=== PATIENT | female | born 1990 | race American Indian/Alaskan Native ===

== ENCOUNTER 2020-10-23 10:16 | Inpatient (IN) | payer BC, OTHER ==
--- NOTE | 2020-10-22 09:58 | History and Physical Report ---
History of Present Illness Date of examination: 10/16/20 Date of admission: 10/23/2020 Chief complaint: here for c/s History of present illness: Pt here for pre Op for primary c/s due to abdominal cerclage in place. She desires to keep cerclage in place at this time. All risk/benefits/alternatives were d/w pt and questions were addressed and answered. Consent signed and given to pt to bring to hospital on day of surgery. No contractions no bleeding +FM. No hedaches or blurry vision BP initially elevated but was normal when repeated. 2nd BP: 128/74.......................................................................Demetrio Phillips October 17, 2020 9:47 AM EDC Confirmation: 10/30/2020 Gestational Age: 7 2/7 weeks Past History : 5 Mult. Births: 0 Prev : 0 Aborta: 1 Elect. Ab: 0 Ectopics: 0 Risk Factors: Smoked Tobacco Use: Never smoker Smokeless Tobacco Use: Never Passive smoke exposure: no Drug use: no HIV high-risk behavior: no Alcohol use: yes Type: occ Exercise: yes Times per week: 5 Type of Exercise: walking Seatbelt use: 100 % Family History Risk Factors: Family History of MO in females < 65 years old: no Past Medical History: Reviewed history from 08/21/2015 and no changes required: Denies Past Surgical History: Reviewed history from 11/18/2019 and no changes required: Cerclage placement X2 Past Medical History Anesthesia Complications: negative Anemia: negative Autoimmune Disorder: negative Bleeding Disorder: negative Blood Transfusions: negative Breast Disease: negative Diabetes: negative Heart Disease: negative Hypertension: negative Hepatitis/Liver Disease: negative Kidney Disease/UTI: negative Neurologic/Epilepsy/Migraines: negative Phlebitis/Varicosities: negative Psychiatric: negative Pulmonary Disease/Asthma: negative Thyroid Disease: negative Hospitalizations: negative Surgery (Non-guidance counselor): Cerclage placement X2 Abnormal PAP: negative JAMAAL Exposure: negative Infertility: negative Uterine Anomaly: negative Uterine Surgery (not C/S): negative Other Gynecologic Problems: negative Social Hx: Patient is single Smoking History: Patient has never smoked. Infection History Hx of STD: Trich HIV Risk Eval: no Hepatitis B Risk Eval: low risk Personal hx. of genital herpes: no Partner hx. of genital herpes: no Rash, Viral, or Febrile illness since last LMP? no Varicella/Chicken Pox Status: Previous Disease TB Risk: no Genetic History Congenital Heart Defect: Mom: no Dad: no Vlad Disease: Mom: no Dad: no Thalassemia Mom: no Dad: no Neural Tube Defect Mom: no Dad: no Down's Syndrome Mom: no Dad: no Rodney-Sachs Mom: no Dad: no Sickle Cell Disease/Trait Mom: no Dad: no Hemophilia Mom: no Dad: no Muscular Dystrophy Mom: no Dad: no Cystic Fibrosis Mom: no Dad: no Mary Jane Chorea Mom: no Dad: no Mental Retardation Mom: no Dad: no Fragile X Mom: no Dad: no Other Genetic/Chromosomal Disorder Mom: no Dad: no Child w/other defect Mom: no Dad: no Enviromental Exposures Xray Exposure: no Medication, drug, or alcohol use since LMP: no Chemical/Other Exposure: no Exposure to Cat Liter: no Occupational Exposure to Children: none Past History Past Medical History: no pertinent history Past Surgical History: other (abdominal cerclage) Family/Genetic History: other (see hpi) Social history: no significant social history - Obstetrical History Expected Date of Delivery: 10/30/20 Actual Gestation: 39 Week(s) 0 Day(s) : 4 Para: 1 Hx # Term Pregnancies: 1 Number of Pregnancies: 1 Number of Living Children: 1 Medications and Allergies Allergies Allergy/AdvReac Type Severity Reaction Status Date / Time No Known Allergies Allergy Verified 12/27/15 08:47 Home Medications Medication Instructions Recorded Confirmed Last Taken Type Vit-Fe Fumar-FA [ 1 tab PO QDAY 10/09/15 12/31/15 1 Day Ago History Vitamin] ~12/26/15 1 tab Sulfamethoxazole/Trimethoprim 1 each PO BID #14 tablet 10/12/15 12/31/15 Unknown Rx [Bactrim DS TAB] Review of Systems All systems: negative - Physical Exam Cardiovascular: Normal S1, Normal S2 Lungs: Positive: Clear to auscultation, Normal air movement Abdomen: Positive: normal appearance, soft. Negative: distention, tenderness, guarding Genitourinary (Female): Positive: other (deferred) - Obstetrical FHR: auscultation normal Results All other labs normal. Assessment and Plan - Patient Problems (1) 39 weeks gestation of Status: Acute (2) Cervical cerclage suture present in third trimester Status: Acute Plan to address problem: -admit -prepare for c/s -consent signed and placed on the chart
[~2020-10-23 10:16] MED LIST: BICITRA ORAL LIQD 30ML PO SCH; FAMOTIDINE 20 MG/2 ML INJ IV SCH; LACTATED RINGERS 1,000 ML IV SCH; METOCLOPRAMIDE 10 MG/2 ML INJ IV SCH; ceFAZolin/Water 2 GM/20 ML 2 GM/20 ML SYRINGE IV NR
[2020-10-23] MEDS ORDERED: OXYTOCIN DRIP 30 UNITS/500 ML BAG IV SCH (10:30)
[2020-10-23] MEDS ORDERED: LACTATED RINGERS 1,000 ML IV SCH (10:30)
[2020-10-23] MEDS ORDERED: PROMETHAZINE 25 MG TAB PO PRN (11:00)
[2020-10-23] MEDS ORDERED: diphenhydrAMINE 50 MG/ML VIAL IV PRN (11:00)
[2020-10-23] MEDS ORDERED: HYDROmorphone 1 MG/1 ML INJ IV PRN (11:00)
[2020-10-23] MEDS ORDERED: ONDANSETRON 4 MG/2 ML INJ IV PRN (11:00)
[2020-10-23] MEDS ORDERED: NalbUPHINE 10 MG/1 ML INJ IV PRN (11:00)
[2020-10-23] MEDS ORDERED: PROMETHAZINE 25 MG RECT SUPP PR PRN (11:00)
[2020-10-23] MEDS ORDERED: NALOXONE 0.4 MG/1 ML INJ IV PRN ×2 (11:00→14:00)
[2020-10-23] MEDS ORDERED: ceFAZolin/STERILE WATER 2 GM/20 ML SYRINGE IV ONE (11:33)
[2020-10-23 11:34] LABS: Basophils % (Auto) 0.3 % (0.0-1.8); Eosinophils # (Auto) 0.1 K/mm3 (0.0-0.4); Eosinophils % (Auto) 0.6 % (0.0-4.3); Hematocrit 36.5 % (30.3-42.9); Hemoglobin 12.4 gm/dl (10.1-14.3); Lymphocytes # (Auto) 1.7 K/mm3 (1.2-5.4); Lymphocytes % (Auto) 18.2 % (13.4-35.0); Mean Corpuscular HGB Conc 34 % (30-34); Mean Corpuscular Volume 95 fl (79-97); Monocytes # (Auto) 0.6 K/mm3 (0.0-0.8); Monocytes % (Auto) 6.4 % (0.0-7.3); Platelet Count 260 K/mm3 (140-440); Red Blood Count 3.86 M/mm3 (3.65-5.03); Red Cell Distribution Width 13.7 % (13.2-15.2)
[2020-10-23] MEDS ORDERED: BICITRA ORAL LIQD 30ML ONE (11:34)
[2020-10-23] MEDS ORDERED: METOCLOPRAMIDE 10 MG/2 ML INJ ONE (11:35)
[2020-10-23] MEDS ORDERED: FAMOTIDINE 20 MG/2 ML INJ IV ONE (11:35)
[2020-10-23] MEDS ORDERED: ONDANSETRON 4 MG/2 ML INJ ONE ×2 (11:44)
[2020-10-23] MEDS ORDERED: KETOROLAC 30 MG/1 ML INJ ONE (11:44)
[2020-10-23] MEDS ORDERED: BUPIVACAINE/PF (0.5%) 5 MG/1 ML 30 ML VIAL INFILTRATI ONE (11:44)
[2020-10-23] MEDS ORDERED: BUPIVACAINE /DEX-WATER 0.75% (2 ML) AMPULE INFILTRATI ONE (11:44)
--- NOTE | 2020-10-23 11:52 | Anesthesia Day of Surgery ---
Anesthesia Day of Surgery - Day of Surgery Patient Examined: Yes Patient H&P Reviewed: Yes Patient is NPO: Yes Beta Blockers: No Cardiac Clearance: No Pulmonary Clearance: No Mikael's Test: N/A
--- NOTE | 2020-10-23 11:54 | Anesthesia Consultation ---
Anesthesia Consult and Med Hx Date of service: 10/23/20 - Airway Anesthetic Teeth Evaluation: Good ROM Head & Neck: Adequate Mental/Hyoid Distance: Adequate Mallampati Class: Class II Intubation Access Assessment: Probably Good - Pulmonary Exam CTA: Yes - Cardiac Exam Cardiac Exam: RRR - Pre-Operative Health Status ASA Pre-Surgery Classification: ASA2 Proposed Anesthetic Plan: Spinal Nerve Block: tap - Pulmonary Hx Smoking: No Hx Asthma: No COPD: No Hx Pneumonia: No Hx Sleep Apnea: No - Cardiovascular System Hx Hypertension: No Hx Heart Attack/AMI: No Hx Angina: No - Central Nervous System Hx Seizures: No Hx Psychiatric Problems: No - Gastrointestinal Hx Gastroesophageal Reflux Disease: Yes (occ with certain foods) - Endocrine Hx Renal Disease: No Hx End Stage Renal Disease: No Hx Insulin Dependent Diabetes: No Hx Non-Insulin Dependent Diabetes: No Hx Hypothyroidism: No Hx Hyperthyroidism: No - Hematic Hx Anemia: No Hx Sickle Cell Disease: No - Other Systems Hx Alcohol Use: No Hx Cancer: No
[2020-10-23] MEDS ORDERED: PHENYLEPHRINE/NS 1,000 MCG/10 ML SYRINGE (OR USE) IV ONE (12:14)
--- NOTE | 2020-10-23 12:44 | Progress Note ---
Spinal Anesthesia Block - Spinal Anesthesia Block Start Time: 12:00 Stop Time: 12:15 Performed by:: ROSA CRAVEN Procedure: Spinal anesthesia block is being performed for [C/S]. H&P, labs have been reviewed. Patient's questions and concerns have been answered. Informed consent has been performed. Timeout has was performed. Patient in sitting position on side of bed. Sterile prep and drape was performed. 3 mL 1% lidocaine skin wheal at L [3]-L [4]. Needle introducer advanced. 25-gauge spinal needle advanced, [+] CSF [-] blood. [Marcaine 12mg and Precedex 5mcg] Spinal dose was given. All needles removed. Patient tolerated procedure well.
[2020-10-23] MEDS ORDERED: fentaNYL 100 MCG/2 ML INJ ONE (12:55)
--- NOTE | 2020-10-23 13:27 | Operative Report ---
Operative Report Operative Report: Date of procedure: 10/23/2020 Pre-operative diagnosis: 39 weeks gestation Abdominal cerclage Post-operative diagnosis: Same Procedure name(s): Primary low transverse section via Pfannenstiel skin incision Surgeon: Dr. Burrell Public Health Specialist: ALANA Anesthesia: Epidural EBL: 700 mL Urine output: 200 mL out of clear urine at the end of the procedure Fluids: 1 L Findings: Liveborn female infant Apgars of 9 and 9 at 1 and 5 minutes weight 5 pounds 8 ounces Grossly normal fallopian tubes and ovaries bilaterally Abdominal cervical cerclage stitch palpated and intact prior to and at the end of the procedure. Indications: Patient presents for scheduled section due to abdominal cerclage being in place. All risks benefits and alternatives were discussed with the patient. Consents were signed and placed on the chart. Procedure: Patient was taking to the operating room. Patient was then prepped and draped in sterile fashion after anesthesia was found to be adequate. A low transverse skin incision was made with the scalpel and carried down to the underlying layer of fascia with the Bovie. The fascia was then incised in the midline and this incision was extended bilaterally with the Bovie. The superior aspect of the fascia was grasped with Andrew clamps tented upward and dissected off of the anterior rectus muscles with the scalpel. In similar fashion the inferior aspect of the fascia was grasped with Andrew clamps tented upward and dissected off of the anterior rectus muscles. The rectus muscles were then bluntly divided in the midline. The peritoneum was identified and entered into sharply. The bladder blade was placed. The Nick retractor was placed. A lower transverse uterine incision was made with the scalpel and extended bilaterally with the bandage scissors. Artificial rupture of membranes was performed yielding [clear amniotic fluid]. The infant's head was then delivered atraumatically. The anterior shoulder and rest of delivered without difficulty. The umbilical cord was clamped x2. The cord was cut. The infant was then placed in sterile bassinet. [The cord blood was collected.] The placenta was manually extracted in its entirety. The uterus was exteriorized and cleared of all clots and debris. The uterine incision was closed using 0 Vicryl in a running locking fashion. Several [id number] sutures using 0 Vicryl were run along incision line to grade imbricating layer. Excellent hemostasis was noted. The posterior cul-de-sac was copiously irrigated. The uterus was returned to the abdomen. The gutters were also irrigated. The anterior rectus muscles were reapproximated using 3-0 Vicryl. The anterior rectus fascia was reapproximated using 0 Vicryl in a running fashion. The subcuticular fat was reapproximated using 2-0 Vicryl in a running fashion. The skin was reapproximated with 4-0 Monocryl in a subcuticular stitch. The patient tolerated the procedure well. Sponge lap and needle counts were all correct x3. Patient was taken to the recovery room awake and in stable condition.
--- NOTE | 2020-10-23 13:42 | Progress Note ---
Regional Anesthesia Block - Regional Anesthesia Block Start Time: 12:00 Stop Time: 13:20 Performed By:: ROSA CRAVEN (melody briggs) Procedure: Patient consented for TAP block for post surgical pain management. Patient identified, monitors placed, and time out performed. Mid axillary TAP identified bilaterally via ultrasound. Skin prepped bilaterally with [chlorhexidine] and [20g stimuplex] needle advanced to the TAP. 30ml [Marcaine 0.25% with 25mcg Precedex and Decadron 4mg] injected under ultrasound guidance on the [left] side. 30ml [Marcaine 0.25% with 25mcg Precedex and Decadron 4mg] injected under ultrasound guidance on the [right] side.
[2020-10-23] MEDS ORDERED: WITCH HAZEL/ GLYCERIN PAD TP PRN (14:00)
[2020-10-23] MEDS ORDERED: LANOLIN/ZINC/DIMETHICONE (LANSINOH) 7 GM TP PRN (14:00)
[2020-10-23] MEDS ORDERED: HYDROcodone/ACETAMINOPHEN 5-325 MG TAB PO PRN (14:00)
[2020-10-23] MEDS ORDERED: D5W/LACTATED RINGERS 1,000 ML IV ONE (16:54)
[2020-10-23] MEDS ORDERED: D5W/LACTATED RINGERS 1,000 ML IV SCH (18:00)
[2020-10-23] MEDS: ceFAZolin/NS 1 GM/50 ML 1 GM/50 ML BAG IV SCH (18:37)
[2020-10-24 00:34] LABS: Hematocrit 34.7 % (30.3-42.9); Hemoglobin 11.9 gm/dl (10.1-14.3)
[2020-10-24] MEDS: ceFAZolin/NS 1 GM/50 ML 1 GM/50 ML BAG IV SCH (02:01)
--- NOTE | 2020-10-24 03:27 | Event Note ---
Date: 10/24/20 (Pt with increases of blood pressure) Received a call from RN that patient's blood pressures have been steadily increasing. Ranges have been 150's/70-90's with the highest one being 157/99. Currently the patient denies CASAS. burred vision, spots before her eyes, chest pain, shortness of breath, and upper abdominal pain. Discussed with patient the need to transfer back to labor and delivery for magnesium infusion and labs. We discussed pre eclampsia during the period, and the risk for seizures which could lead to maternal injury. We also discussed that she would possibly need PO and IV medication to bring down her blood pressures. Before explaining further regarding pre eclampsia, provider was interrupted by significant other. He was upset because he thought that the baby would not be able to be in the room with them during mag infusion and asked why the magnesium infusion could not be started on . Explained that pt will need closer monitoring of blood pressures, which would be done more efficiently on labor and delivery at this time. After being assured that baby will be able to stay in room as long as significant other is in the room with her, they agreed to plan for mag and transfer. All questions and concerns were addressed.
[2020-10-24] MEDS ORDERED: MAGNESIUM SULFATE 4 GM/100 ML BAG IV ONE ×2 (03:28→04:02)
[2020-10-24] MEDS ORDERED: LACTATED RINGERS 1,000 ML IV SCH (03:30)
[2020-10-24] MEDS ORDERED: MAGNESIUM SULFATE 40GM/1000ML 40 GM/1,000 ML BAG IV ONE (04:03)
[2020-10-24] MEDS ORDERED: LACTATED RINGERS 1,000 ML ONE ×2 (04:03→16:43)
[2020-10-24 04:08] LABS: Bacteria,Urine 3+ /HPF (Negative); Bilirubin,Urine NEG (Negative); Blood,Urine LG (Negative); Color,Urine Yellow (Yellow); Mucus,Urine FEW /HPF; Urobilinogen,Urine < 2.0 mg/dL (<2.0)
[2020-10-24 04:09] LABS: RBC,Urine > 182.0 /HPF (0.0-6.0)
[2020-10-24] MEDS: MAGNESIUM SULFATE 40GM/1000ML 40 GM/1,000 ML BAG IV SCH (04:44)
[2020-10-24 06:20] LABS: Hematocrit 36.3 % (30.3-42.9); Hemoglobin 12.1 gm/dl (10.1-14.3); Mean Corpuscular HGB Conc 33 % (30-34); Mean Corpuscular Volume 94 fl (79-97); Platelet Count 266 K/mm3 (140-440); Red Blood Count 3.86 M/mm3 (3.65-5.03); Red Cell Distribution Width 13.6 % (13.2-15.2)
[2020-10-24 06:32] LABS: Alanine Aminotransferase 9 units/L (7-56)
--- NOTE | 2020-10-24 07:27 | Progress Note ---
Assessment and Plan postop day #1 s/p primary c/s, denies CASAS/epigastric pain or visual changes. output adequate. b/p 150-190's/70-109. encouraged breast feeding on demand. Dressing D&I, will remove after shower tomorrow. - Patient Problems (1) delivery delivered Current Visit: Yes Status: Acute Plan to address problem: Continue post op pathway Advance diet and activity as tolerated (activity after completion of mag sulfate) (2) Pre-eclampsia Current Visit: Yes Status: Acute Plan to address problem: Monitor for s/s worsening pre-e Continue mag sulfate x24hrs Mag levels q6hrs continue labetalol 200mg PO BID Strict I&O Subjective - Subjective Date of service: 10/24/20 Principal diagnosis: postop day #1 s/p primary c/s; pre-e on mag sulfate & labetalol Patient reports: appetite normal, other (Triplett to BSB), no flatus, no nauseated [place]: doing well, nursing well Objective - Vital Signs Latest vital signs: Vital Signs Temp Pulse Resp BP BP Pulse Ox 10/24/20 07:18 75 177/95 10/24/20 06:48 78 144/84 10/24/20 06:37 65 164/77 10/24/20 06:18 65 164/77 10/24/20 06:06 75 188/97 188/97 10/24/20 05:48 67 198/109 10/24/20 05:21 68 172/80 10/24/20 05:18 62 190/90 10/24/20 04:53 166/79 10/24/20 04:16 98.8 F 182/90 10/24/20 02:09 156/85 10/24/20 00:47 98.0 F 18 157/99 10/23/20 20:22 98.0 F 51 L 18 152/74 97 10/23/20 15:20 98.0 F 20 150/80 10/23/20 15:05 98 F 52 L 20 150/80 97 10/23/20 14:32 97.6 F 10/23/20 14:15 56 L 17 137/76 99 10/23/20 14:00 58 L 21 143/76 100 10/23/20 13:45 52 L 18 143/77 100 10/23/20 13:30 53 L 16 137/76 100 10/23/20 13:25 54 L 20 143/74 99 10/23/20 13:20 97.6 F 58 L 12 137/69 100 10/23/20 11:42 63 99 10/23/20 11:37 59 L 98 10/23/20 11:32 56 L 99 10/23/20 11:27 59 L 99 10/23/20 11:22 57 L 100 10/23/20 11:17 64 100 10/23/20 11:12 68 99 10/23/20 11:07 61 98 10/23/20 11:02 61 98 10/23/20 10:57 74 96 10/23/20 10:52 62 98 10/23/20 10:47 82 98 10/23/20 10:46 98.2 F 82 20 128/87 98 10/23/20 10:44 82 128/87 Intake and Output 10/23/20 10/23/20 10/24/20 15:59 23:59 07:59 Intake Total 1800 170 720 Output Total 234 198 8006 Balance 1550 -80 -1780 Intake: IV 1800 50 ANCEF/NS 1 GM/50 ML 1 gm 50 In 50 ml @ 100 mls/hr IV Q8H [facility] Rx#:[id number] Oral 120 720 Output: Urine 968 350 9770 Indwelling Catheter 250 1900 Uretheral (Triplett) 0 Void 600 Other: Total, Intake Amount 120 240 Total, Output Amount 250 500 Weight 96.615 kg Estimated Blood Loss 700 - Exam Breasts: Present: normal, Cardiovascular: Present: Regular rate Lungs: Present: Clear to auscultation, Normal air movement Abdomen: Present: normal appearance, soft, normal bowel sounds Uterus: Present: normal, firm, fundal height at umbilicus Extremities: Present: normal Deep Tendon Reflex Grade: Normal +2 Incision: Present: normal, dry, dressed - Labs Labs: Abnormal lab results 10/23/20 10/24/20 10/24/20 Range/Units 11:10 02:20 03:45 WBC (4.5-11.0) K/mm3 Seg Neutrophils % 74.5 H (40.0-70.0) % Magnesium (1.7-2.3) mg/dL Lactate Dehydrogenase 338 H (91-180) units/L Urine WBC (Auto) 31.0 H (0.0-6.0) /HPF U Epithel Cells (Auto) 25.0 H (0-13.0) /HPF 10/24/20 10/24/20 Range/Units 05:35 06:00 WBC 19.6 H (4.5-11.0) K/mm3 Seg Neutrophils % (40.0-70.0) % Magnesium 3.70 H (1.7-2.3) mg/dL Lactate Dehydrogenase (91-180) units/L Urine WBC (Auto) (0.0-6.0) /HPF U Epithel Cells (Auto) (0-13.0) /HPF
[2020-10-24] MEDS ORDERED: IBUPROFEN 800 MG TAB PO PRN (08:00)
[2020-10-24] MEDS ORDERED: KETOROLAC 30 MG/1 ML INJ IV PRN (08:00)
[2020-10-24] MEDS ORDERED: HYDROcodone/ACETAMINOPHEN 5-325 MG TAB PO PRN (09:00)
[2020-10-24] MEDS: SIMETHICONE 80 MG CHEW TAB PO PRN (09:43)
[2020-10-24] MEDS ORDERED: DIPHtheria,PERTUSSIS(ACELL),TETANUS VACCINE/PF 0.5 ML VIAL IM ONE (13:32)
[2020-10-24] MEDS: KETOROLAC 30 MG/1 ML INJ IV SCH ×2 (15:00→23:07)
[2020-10-25] MEDS ORDERED: MAGNESIUM SULFATE 40GM/1000ML 40 GM/1,000 ML BAG IV ONE (01:06)
[2020-10-25] MEDS: MAGNESIUM SULFATE 40GM/1000ML 40 GM/1,000 ML BAG IV SCH (01:10)
--- NOTE | 2020-10-25 07:27 | Progress Note ---
Assessment and Plan - Patient Problems (1) delivery delivered Onset Date: ~10/23/20 Current Visit: Yes Status: Acute Plan to address problem: Pt in good spirits BP 150-130/80-70 Dressing D&I No c/o voiced Denies CASAS, blurred vision, chest pain. Doing well s/p section; PreE P: transfer to [facility] Continue Labetalol and continue PP pathway (2) Pre-eclampsia Current Visit: Yes Status: Acute Qualifiers: Trimester: third trimester Qualified Code(s): O14.93 - Unspecified pre- eclampsia, third trimester Plan to address problem: MGSO4 completed Will continue Labetalol po 200mg BID Subjective - Subjective Date of service: 10/25/20 (Pt transfered to [facility] in stable condition after 24hr MGSO4) Principal diagnosis: postop day #2 s/p primary c/s; pre-e labetalol Patient reports: voiding normally, pain well controlled, ambulating normally [place]: doing well Objective - Vital Signs Latest vital signs: Vital Signs Temp Pulse Resp BP BP Pulse Ox 10/25/20 05:39 94 H 89 10/25/20 05:34 80 99 10/25/20 05:29 82 129/86 99 10/25/20 05:24 80 99 10/25/20 05:19 87 100 10/25/20 05:14 91 H 100 10/25/20 05:09 83 100 10/25/20 05:04 89 100 10/25/20 04:59 85 99 10/25/20 04:54 82 99 10/25/20 04:49 88 100 10/25/20 04:44 85 99 10/25/20 04:39 88 99 10/25/20 04:34 85 99 10/25/20 04:29 77 143/85 99 10/25/20 04:24 80 100 10/25/20 04:19 84 100 10/25/20 04:14 85 99 10/25/20 04:09 86 100 10/25/20 04:04 87 100 10/25/20 03:59 86 99 10/25/20 03:54 84 99 10/25/20 03:49 82 99 10/25/20 03:44 85 99 10/25/20 03:39 78 100 10/25/20 03:34 82 100 10/25/20 03:29 78 138/85 100 10/25/20 03:24 79 99 10/25/20 03:19 73 92 10/25/20 03:14 88 99 10/25/20 03:09 92 H 99 10/25/20 03:04 88 99 10/25/20 02:59 79 99 10/25/20 02:54 80 100 10/25/20 02:49 82 100 10/25/20 02:44 83 100 10/25/20 02:39 82 100 10/25/20 02:34 95 H 100 10/25/20 02:29 83 117/71 94 10/25/20 02:24 82 97 10/25/20 02:19 79 98 10/25/20 02:14 82 98 10/25/20 02:09 82 99 10/25/20 02:04 88 99 10/25/20 01:59 84 100 10/25/20 01:54 81 100 10/25/20 01:49 93 H 99 10/25/20 01:44 91 H 99 10/25/20 01:39 88 99 10/25/20 01:34 87 99 10/25/20 01:29 86 123/77 99 10/25/20 01:24 97 H 99 10/25/20 01:19 98 H 99 10/25/20 01:14 92 H 100 10/25/20 01:09 88 100 10/25/20 01:04 83 100 10/25/20 00:59 88 100 10/25/20 00:54 92 H 100 10/25/20 00:49 94 H 99 10/25/20 00:44 91 H 99 10/25/20 00:39 89 99 10/25/20 00:34 93 H 99 10/25/20 00:29 91 H 141/89 94 10/25/20 00:24 91 H 100 10/25/20 00:19 90 99 10/25/20 00:14 94 H 99 10/25/20 00:09 89 99 10/25/20 00:04 93 H 100 10/24/20 23:59 95 H 100 10/24/20 23:54 96 H 100 10/24/20 23:49 103 H 100 10/24/20 23:44 94 H 99 10/24/20 23:39 91 H 99 10/24/20 23:34 101 H 98 10/24/20 23:29 91 H 151/81 100 10/24/20 23:24 100 H 100 10/24/20 23:21 91 H 150/88 10/24/20 23:19 94 H 100 10/24/20 23:14 94 H 100 10/24/20 23:09 93 H 99 10/24/20 23:04 90 98 10/24/20 22:59 84 98 10/24/20 22:54 85 98 10/24/20 22:49 89 98 10/24/20 22:44 84 98 10/24/20 22:39 85 98 10/24/20 22:34 83 98 10/24/20 22:29 81 123/58 98 10/24/20 22:24 82 98 10/24/20 22:19 81 99 10/24/20 22:14 81 99 10/24/20 22:09 78 99 10/24/20 22:04 83 99 10/24/20 21:59 86 99 10/24/20 21:54 80 99 10/24/20 21:49 84 99 10/24/20 21:44 84 100 10/24/20 21:39 85 99 10/24/20 21:37 78 18 145/92 99 10/24/20 21:34 77 99 10/24/20 21:29 75 145/92 99 10/24/20 21:24 90 98 10/24/20 21:19 90 99 10/24/20 21:14 83 99 10/24/20 21:09 77 100 10/24/20 21:04 82 100 10/24/20 20:59 75 100 10/24/20 20:54 80 100 10/24/20 20:49 83 99 10/24/20 20:44 78 100 10/24/20 20:39 83 99 10/24/20 20:34 84 99 10/24/20 20:30 98.9 F 83 18 135/86 99 10/24/20 20:29 83 135/86 10/24/20 19:30 85 18 131/74 10/24/20 19:18 85 131/74 10/24/20 18:48 84 148/69 10/24/20 18:18 90 131/81 10/24/20 17:48 83 126/78 10/24/20 17:18 90 133/81 10/24/20 16:48 85 144/75 10/24/20 16:18 93 H 132/82 10/24/20 15:48 85 145/90 10/24/20 15:18 83 121/69 10/24/20 14:48 91 H 127/75 10/24/20 13:18 83 132/82 10/24/20 12:48 73 141/80 10/24/20 12:18 84 127/77 10/24/20 11:48 85 152/85 10/24/20 11:18 87 153/89 10/24/20 10:59 81 152/74 10/24/20 10:48 89 166/77 10/24/20 10:18 78 147/82 10/24/20 09:48 83 154/77 10/24/20 09:43 81 113/59 10/24/20 09:18 81 113/59 10/24/20 08:48 76 133/71 10/24/20 08:18 74 139/67 10/24/20 07:48 75 137/79 10/24/20 07:38 69 185/91 10/24/20 07:35 97.9 F 69 16 177/95 98 Intake and Output 10/24/20 10/25/20 10/25/20 22:59 06:59 14:59 Intake Total 360 1240 Output Total 1000 1275 Balance -640 -35 Intake: IV 1000 MAGNESIUM SULFATE 40GM/ 1000 1000ML 40 gm In 1,000 ml @ 2 GM/HR 50 mls/hr IV [facility] Rx#:[id number] Oral 360 240 Output: Urine 1000 1275 Indwelling Catheter 600 1075 Void 400 200 Other: Total, Intake Amount 120 240 Total, Output Amount 250 200 - Exam Breasts: Present: normal Cardiovascular: Present: Regular rate Lungs: Present: Normal air movement Abdomen: Present: normal appearance, soft, normal bowel sounds Uterus: Present: normal, fundal height below umbilicus Extremities: Present: normal Deep Tendon Reflex Grade: Normal +2 Incision: Present: normal, dry, intact - Labs Labs: Abnormal lab results 10/24/20 10/24/20 10/24/20 Range/Units 10:13 13:41 18:50 POC Glucose 58 L (70-105) mg/dL Magnesium 5.30 H 5.60 H (1.7-2.3) mg/dL 10/25/20 Range/Units 02:34 POC Glucose (70-105) mg/dL Magnesium 6.00 H (1.7-2.3) mg/dL
[2020-10-25] MEDS: SIMETHICONE 80 MG CHEW TAB PO PRN (13:07)
--- NOTE | 2020-10-26 09:50 | Discharge Summary ---
Providers - Providers Date of Admission: 10/23/20 13:31 Attending physician: DEACON LEE Primary care physician: DEACON LEE Hospitalization Reason for admission: section Delivery: Procedure: primary low transverse Episiotomy: none Laceration: none Incision: normal, dry, intact Other procedures: none complications: none Discharge diagnosis: IUP at term delivered [place] baby: female Pertinent studies: Pt denies CASAS, burred vision, spots before her eyes, chest pain, shortness of breath, and upper abdominal pain. We discussed that if she experiences any of these symptoms to call the office and speak with weigher production provider to receive further instructions. She was also instructed on taking her blood pressures before taking blood pressure medication and to call the office if blood pressures are 160/100 or greater. Pt verbalized understanding of these instructions. Hospital course: S: Pt doing well. Pain controlled. Ambulating, passing flatus, and voiding without difficulty. O: VSS. BP ranges WNL. Adequate I&O's. Fundus firm, minimal bleeding noted. Incision intact, no drainage, or s/sx of infection noted. A: 30 y.o. s/p primary , s/p mag infusion d/t pre eclampsia, BP's WNL, stable that can be discharged home. P: Discharge home with instructions. To schedule an incision check and BP check in the office in 1 week. Condition at discharge: Good Disposition: DC-01 TO HOME OR SELFCARE Plan - Discharge Medications Prescriptions: Blood Pressure Test Kit-Wrist [Caretouch Wrist Bp Monitor] 1 each MC ONCE #1 kit Docusate Sodium [Colace] 100 mg PO BID PRN #60 capsule PRN Reason: Constipation labetaloL [Labetalol 200mg TAB] 200 mg PO BID #60 tablet Ibuprofen [Motrin 800 MG tab] 800 mg PO Q8HR PRN #30 tablet PRN Reason: Pain, Moderate (4-6) oxyCODONE /ACETAMINOPHEN [Percocet 5/325] 1 tab PO Q4HR #30 tab - Provider Discharge Summary Activity: routine, no sex for 6 weeks, no heavy lifting 4 weeks, no strenuous exercise Diet: routine Instructions: routine Additional instructions: [] Smoking cessation referral if applicable(refer to patient education folder for contact #) [] Refer to [facility] Booklet Call your doctor immediately for: * Fever > 100.5 * Heavy vaginal bleeding ( >1 pad per hour) * Severe persistent headache * Shortness of breath * Reddened, hot, painful area to leg or breast * Drainage or odor from incision. * Keep incision clean and dry at all times and follow doctor's instructions regarding bathing/showering - Follow up plan Follow up: DEACON LEE MD [Primary Care Provider] - 7 Days (Congratulations!! Please schedule your incision check and blood pressure check in the office in 1 week. Please take your blood pressure medication as prescribed. If you blood pressures at home are 160/100 or greater, please call the office for further instructions. If you have any questions or concerns, please do not hesitate to call the office at [phone]. ) Forms: [facility] Discharge Summary
[2020-10-26 13:07] VITALS: BP 145/82
== END 2020-10-26 13:45 | disposition home or self-care (01) | DRG 788 ==
LOC: UNDOADMIN 10:16 → APU 10:16 → LD 13:31 → APU 15:09 → OB 15:09
PROVIDERS: ADMIT Obstetrics & Gynecology; ATTEND Obstetrics & Gynecology
PROC: 10D00Z1 Extraction of Products of Conception, Low, Open Approach (ICD-10-PCS; principal; 2020-10-23)
PROC: 3E0234Z Introduction of Serum, Toxoid and Vaccine into Muscle, Percutaneous Approach (ICD-10-PCS; 2020-10-24)
DX: O34.33 Maternal care for cervical incompetence, third trimester (principal); O14.94 Unspecified pre-eclampsia, complicating childbirth; Z20.828 Contact with and (suspected) exposure to other viral communicable diseases; O99.62 Diseases of the digestive system complicating childbirth; K21.9 Gastro-esophageal reflux disease without esophagitis; Z37.0 Single live birth; Z3A.39 39 weeks gestation of pregnancy; Z79.899 Other long term (current) drug therapy; Z23 Encounter for immunization
CPT/HCPCS: 36415; 81001; 82565; 82962; 83615; 83735; 84450; 84460; 84550; 85014; 85018; 85025; 85027; 86850; 86900; 86901; 87086; G0378; J0690; J1885; J2370; J2405; J2765; J3010; J3475; J3490; J7120; U0003